=== PATIENT | male | born 1940 | race Caucasian/White ===

== ENCOUNTER 2018-06-10 15:34 | Inpatient (IN) | payer OTHER ==
[~2018-06-10] VITALS: Ht 160 cm; Wt 60.5 kg
[~2018-06-10 15:34] MED LIST: ATOR40TA69 PO; BUDE10.2 IH; LUTE1CAP5 PO; METF-444 PO; TIOT18CA3 IH; TRAM50TA4 PO
[2018-06-10 16:04] LABS: BASOPHILS % (AUTO) 0.3 % (0.0-5.0); EOSINOPHILS % (AUTO) 0.2 % (0.0-8.0); HEMATOCRIT 47.6 % (42-54); LYMPHOCYTES % (AUTO) 4.7 % (21.0-51.0); MEAN CORPUSCULAR HEMOGLOBIN 30.8 pg (27.0-33.0); MEAN CORPUSCULAR HGB CONC 32.6 g/dL (32.0-36.0); MEAN CORPUSCULAR VOLUME 94.7 fL (79-99); MONOCYTES % (AUTO) 7.1 % (3.0-13.0); NEUTROPHILS % (AUTO) 87.7 % (40.0-77.0); NUCLEATED RED BLOOD CELLS 0.1 % (0.0-0.19); PLATELET COUNT (AUTO) 249 K/uL (130-400); RED BLOOD CELL COUNT(AUTO) 5.03 MIL/uL (4.50-6.20); RED CELL DISTRIBUTION WIDTH 14.4 % (11.0-15.5); WHITE BLOOD COUNT (AUTO) 14.8 K/uL (4.8-10.8)
[2018-06-10 16:35] LABS: CREATININE 1.5 mg/dL (0.5-1.5); POTASSIUM 4.9 mmol/L (3.5-5.1)
[2018-06-10 16:39] LABS: ALBUMIN 3.3 g/dL (3.5-5.0); BILIRUBIN,TOTAL 0.4 mg/dL (0.2-1.0); TOTAL PROTEIN, SERUM 8.3 g/dL (6.0-8.3)
[2018-06-10] MEDS ORDERED: ACETAMINOPHEN 325 MG TAB ONE (22:49)
[2018-06-10] MEDS ORDERED: GLUCAGON 1MG KIT 1 MG ML IM PRN (23:00)
[2018-06-10] MEDS ORDERED: ONDANSETRON HCL 4 MG/2 ML VIAL IV PRN (23:00)
[2018-06-10] MEDS ORDERED: DEXTROSE 50%-WATER 50 ML DISP.SYRIN IV PRN (23:00)
[2018-06-10] MEDS ORDERED: ACETAMINOPHEN 325 MG TAB PO PRN (23:00)
[2018-06-10 23:26] LABS: HEMOGLOBIN A1C 7.8 % (4.0-6.0)
[2018-06-10] MEDS ORDERED: METRONIDAZOLE 500MG/100ML BAG 100 ML ONE (23:29)
[2018-06-11] MEDS ORDERED: IPRATROPIUM 0.5 MG/2.5 ML INH IH ONE ×4 (01:49→14:22)
[2018-06-11] MEDS: IPRATROPIUM 0.5 MG/2.5 ML INH IH PRN ×6 (01:50→21:25)
[2018-06-11 04:36] LABS: HEMATOCRIT 41.9 % (42-54); MEAN CORPUSCULAR HEMOGLOBIN 31.1 pg (27.0-33.0); MEAN CORPUSCULAR HGB CONC 32.9 g/dL (32.0-36.0); MEAN CORPUSCULAR VOLUME 94.4 fL (79-99); NUCLEATED RED BLOOD CELLS 0.1 % (0.0-0.19); PLATELET COUNT (AUTO) 187 K/uL (130-400); RED BLOOD CELL COUNT(AUTO) 4.44 MIL/uL (4.50-6.20); RED CELL DISTRIBUTION WIDTH 13.9 % (11.0-15.5); WHITE BLOOD COUNT (AUTO) 10.7 K/uL (4.8-10.8)
[2018-06-11 04:47] LABS: ALBUMIN 2.7 g/dL (3.5-5.0); BILIRUBIN,TOTAL 0.3 mg/dL (0.2-1.0); MAGNESIUM 1.6 mg/dL (1.80-2.40); POTASSIUM 4.2 mmol/L (3.5-5.1); TOTAL PROTEIN, SERUM 6.9 g/dL (6.0-8.3)
[2018-06-11 05:00] LABS: BAND NEUTROPHILS % (MANUAL) 1 % (0-2); LYMPHOCYTES % (MANUAL) 5 % (22-44); MAN.DIFF COMMENT-IMPRESSION MANUAL DIFFERENTIAL; MONOCYTES % (MANUAL) 8 % (2-9); SEGMENTED NEUTROPHILS % 86 % (40-70)
[2018-06-11] MEDS ORDERED: ACETAMINOPHEN 325 MG TAB ONE ×2 (07:08→12:08)
[2018-06-11 07:29] LABS: OCCULT BLOOD STOOL SINGLE ONLY POSITIVE (NEGATIVE)
[2018-06-11] MEDS ORDERED: FAMOTIDINE 20MG TAB 20 MG TAB ONE (07:53)
[2018-06-11] MEDS ORDERED: ENOXAPARIN SODIUM 30 MG/0.3 ML SQ ONE (07:53)
[2018-06-11] MEDS ORDERED: METRONIDAZOLE 500MG/100ML BAG 100 ML ONE (07:54)
[2018-06-11] MEDS: METRONIDAZOLE 500MG/100ML BAG 100 ML IV SCH ×2 (08:00→15:28)
[2018-06-11] MEDS: SODIUM CHLORIDE 0.9% 1000ML 1,000 ML IV SCH ×3 (08:58→23:00)
[2018-06-11] MEDS: ENOXAPARIN SODIUM 30 MG/0.3 ML SQ SCH (09:00)
[2018-06-11] MEDS: FAMOTIDINE 20MG TAB 20 MG TAB PO SCH (09:00)
[2018-06-11] MEDS ORDERED: IPRATROPIUM/ALBUTEROL SULFATE 3 ML SOLUTION IH ONE (09:41)
[2018-06-11] MEDS: INSULIN HUMULIN R 100 UNIT/ML 3ML SQ SCH ×3 (11:30→22:14)
[2018-06-11 14:42] LABS: APPEARANCE,URINE Clear (CLEAR); BILIRUBIN,URINE Negative (NEGATIVE); COLOR,URINE Yellow (YELLOW); GLUCOSE, URINE (UA) Negative (NEGATIVE); KETONES,URINE Trace mg/dL (NEGATIVE); LEUKOCYTE ESTERASE ,URINE Negative (NEGATIVE); NITRATE,URINE Negative (NEGATIVE); OCCULT BLOOD,URINE Negative (NEGATIVE); PROTEIN,URINE Negative (NEGATIVE); UROBILINOGEN,URINE 0.2 mg/dL (0.2-1.0)
[2018-06-11 16:00] VITALS: BP 128/64
[2018-06-11] MEDS: ACETAMINOPHEN 325 MG TAB PO PRN (22:05)
[2018-06-11 22:09] VITALS: BP 143/67
[2018-06-12] VITALS (7 sets, daily range): BP systolic 98–122; BP diastolic 48–67
[2018-06-12] MEDS: LEVOFLOXACIN 500 MG/D5W 100 ML 100 ML IV SCH ×2 (00:15→23:15)
[2018-06-12] MEDS: METRONIDAZOLE 500MG/100ML BAG 100 ML IV SCH ×4 (00:20→23:15)
[2018-06-12] MEDS: IPRATROPIUM 0.5 MG/2.5 ML INH IH PRN ×6 (01:46→21:55)
[2018-06-12 04:57] LABS: HEMATOCRIT 34.4 % (42-54); MEAN CORPUSCULAR HGB CONC 33.4 g/dL (32.0-36.0); MEAN CORPUSCULAR VOLUME 92.9 fL (79-99); PLATELET COUNT (AUTO) 186 K/uL (130-400); WHITE BLOOD COUNT (AUTO) 17.2 K/uL (4.8-10.8)
[2018-06-12 05:11] LABS: CREATININE 0.9 mg/dL (0.5-1.5); MAGNESIUM 1.5 mg/dL (1.80-2.40); PHOSPHORUS 2.4 mg/dL (2.5-4.9); POTASSIUM 3.4 mmol/L (3.5-5.1)
[2018-06-12] MEDS: SODIUM CHLORIDE 0.9% 1000ML 1,000 ML IV SCH ×3 (05:23→23:15)
[2018-06-12] MEDS: INSULIN HUMULIN R 100 UNIT/ML 3ML SQ SCH ×4 (06:44→20:33)
[2018-06-12] MEDS: FAMOTIDINE 20MG TAB 20 MG TAB PO SCH (09:54)
[2018-06-12] MEDS: ENOXAPARIN SODIUM 30 MG/0.3 ML SQ SCH (09:54)
[2018-06-12] MEDS: MAGNESIUM 2GM PREMIX 50ML 50 ML IV PRN (11:53)
--- NOTE | 2018-06-12 13:11 | NUR ---
DCP CM met with pt discussed dc plans. Pt is independent, lives at home with spouse. Has oxygen, and nebulizer. Feels safe to go back home, spouse able to assist with transportation and needs as necessary. DC plan to home once stable. CM to cont to follow up. Addendum: 06/12/18 at 1322 by AVIS ACEVEDO LVN CM Amended: Links added.
[2018-06-12] MEDS: ACETAMINOPHEN 325 MG TAB PO PRN (18:50)
[2018-06-12] MEDS ORDERED: COMPOUND PO MISCELLANEOUS 1 EACH MISC MISC PRN (19:45)
[2018-06-12] MEDS ORDERED: IOHEXOL 350 MG/ML 100ML INFUS..BTL IV ONE (20:06)
[2018-06-12] MEDS ORDERED: DIATR MEGLU/DIATRIZOATE SODIUM 30 ML BOTTLE ONE (20:06)
[2018-06-12] MEDS: VANCOMYCIN PO SCH ×2 (21:19)
[2018-06-13] VITALS: BP 122/70
[2018-06-13] MEDS: IPRATROPIUM 0.5 MG/2.5 ML INH IH PRN ×6 (01:14→21:29)
[2018-06-13 04:00] VITALS: BP 95/61
[2018-06-13 04:35] LABS: BASOPHILS % (AUTO) 0.4 % (0.0-5.0); EOSINOPHILS % (AUTO) 0.3 % (0.0-8.0); HEMATOCRIT 33.8 % (42-54); LYMPHOCYTES % (AUTO) 9.5 % (21.0-51.0); MEAN CORPUSCULAR HGB CONC 33.5 g/dL (32.0-36.0); MEAN CORPUSCULAR VOLUME 92.4 fL (79-99); MONOCYTES % (AUTO) 6.9 % (3.0-13.0); NEUTROPHILS % (AUTO) 82.9 % (40.0-77.0); PLATELET COUNT (AUTO) 153 K/uL (130-400); RED BLOOD CELL COUNT(AUTO) 3.66 MIL/uL (4.50-6.20); RED CELL DISTRIBUTION WIDTH 14.2 % (11.0-15.5); WHITE BLOOD COUNT (AUTO) 6.2 K/uL (4.8-10.8)
[2018-06-13 04:54] LABS: CREATININE 0.9 mg/dL (0.5-1.5); MAGNESIUM 1.8 mg/dL (1.80-2.40); PHOSPHORUS 1.8 mg/dL (2.5-4.9)
[2018-06-13 05:16] LABS: POTASSIUM 2.9 mmol/L (3.5-5.1)
[2018-06-13 05:24] LABS: CRP QUANTITATIVE 13.4 mg/L (0.00-9.0)
[2018-06-13 05:27] LABS: ERYTHROCYTE SEDIMENTATION RATE 50 MM/HR (0-20)
[2018-06-13 05:37] LABS: APPEARANCE,URINE Clear (CLEAR); BILIRUBIN,URINE Negative (NEGATIVE); COLOR,URINE Yellow (YELLOW); GLUCOSE, URINE (UA) Negative (NEGATIVE); KETONES,URINE Trace mg/dL (NEGATIVE); LEUKOCYTE ESTERASE ,URINE Negative (NEGATIVE); NITRATE,URINE Negative (NEGATIVE); OCCULT BLOOD,URINE Small (NEGATIVE); PH,URINE 5.5 (5.0-8.0); PROTEIN,URINE Negative (NEGATIVE); UROBILINOGEN,URINE 0.2 mg/dL (0.2-1.0)
[2018-06-13] MEDS: MAGNESIUM 2GM PREMIX 50ML 50 ML IV PRN (05:45)
[2018-06-13 05:59] LABS: BACTERIA,URINE None Seen /HPF (None Seen); SQUAMOUS EPITHELIAL CELL,UR Rare /HPF (0-2); WBC,URINE None Seen /HPF (0-1)
[2018-06-13] MEDS ORDERED: LIDOCAINE HCL-MPF 1% 2ML VIAL IVP PRN (06:30)
[2018-06-13] MEDS ORDERED: POTASSIUM CHLORIDE 10MEQ/100ML 100 ML IV PRN (06:30)
[2018-06-13] MEDS: INSULIN HUMULIN R 100 UNIT/ML 3ML SQ SCH ×4 (06:32→20:31)
[2018-06-13 07:00] VITALS: BP 102/56
[2018-06-13] MEDS: METRONIDAZOLE 500MG/100ML BAG 100 ML IV SCH ×3 (09:11→23:35)
[2018-06-13] MEDS: FAMOTIDINE 20MG TAB 20 MG TAB PO SCH (09:11)
[2018-06-13] MEDS: ENOXAPARIN SODIUM 30 MG/0.3 ML SQ SCH (09:11)
[2018-06-13] MEDS: VANCOMYCIN PO SCH ×8 (09:12→21:05)
[2018-06-13 11:00] VITALS: BP 101/58
[2018-06-13] MEDS: SODIUM CHLORIDE 0.9% 1000ML 1,000 ML IV SCH ×2 (11:17→21:06)
[2018-06-13] MEDS: POTASSIUM CHLORIDE 20 MEQ ERTAB PO PRN ×2 (15:36→17:59)
[2018-06-13 16:00] VITALS: BP 110/64
--- NOTE | 2018-06-13 16:26 | NUR ---
DCP/SNF: Discussed w pt recommendation for poss SNF @ DC. Per pt he feels safe to return home @ dc w the assistance of his spouse. Pt declines SNF @ this time.
[2018-06-13 19:00] VITALS: BP 114/71
[2018-06-13] MEDS: LEVOFLOXACIN 500 MG/D5W 100 ML 100 ML IV SCH (23:35)
[2018-06-14] VITALS: BP 118/67
[2018-06-14] MEDS: POTASSIUM CHLORIDE 10% ELIXIR 20 MEQ/15 ML UDCUP PO PRN ×2 (01:40→04:09)
[2018-06-14] MEDS: IPRATROPIUM 0.5 MG/2.5 ML INH IH PRN ×3 (02:05→18:59)
[2018-06-14 04:00] VITALS: BP 103/58
[2018-06-14 05:46] LABS: BASOPHILS % (AUTO) 0.4 % (0.0-5.0); EOSINOPHILS % (AUTO) 1.1 % (0.0-8.0); HEMATOCRIT 33.1 % (42-54); LYMPHOCYTES % (AUTO) 17.2 % (21.0-51.0); MEAN CORPUSCULAR HEMOGLOBIN 30.7 pg (27.0-33.0); MEAN CORPUSCULAR HGB CONC 33.3 g/dL (32.0-36.0); MEAN CORPUSCULAR VOLUME 92.1 fL (79-99); NEUTROPHILS % (AUTO) 69.3 % (40.0-77.0); PLATELET COUNT (AUTO) 153 K/uL (130-400); RED BLOOD CELL COUNT(AUTO) 3.59 MIL/uL (4.50-6.20); RED CELL DISTRIBUTION WIDTH 14.3 % (11.0-15.5); WHITE BLOOD COUNT (AUTO) 5.3 K/uL (4.8-10.8)
[2018-06-14] MEDS: INSULIN HUMULIN R 100 UNIT/ML 3ML SQ SCH ×4 (05:46→21:00)
[2018-06-14 06:01] LABS: CREATININE 0.8 mg/dL (0.5-1.5); POTASSIUM 3.7 mmol/L (3.5-5.1)
--- NOTE | 2018-06-14 06:52 | NUR ---
DC Colin Colin was removed per MD's order. Tolerated well and is due to void by 1450.
[2018-06-14 07:00] VITALS: BP 120/64
[2018-06-14] MEDS: FAMOTIDINE 20MG TAB 20 MG TAB PO SCH (09:28)
[2018-06-14] MEDS: METRONIDAZOLE 500MG/100ML BAG 100 ML IV SCH ×3 (09:28→23:57)
[2018-06-14] MEDS: ENOXAPARIN SODIUM 30 MG/0.3 ML SQ SCH (09:28)
[2018-06-14] MEDS: VANCOMYCIN PO SCH ×8 (09:29→21:30)
[2018-06-14] MEDS: SODIUM CHLORIDE 0.9% 1000ML 1,000 ML IV SCH ×2 (09:30→21:27)
[2018-06-14 11:00] VITALS: BP 108/61
--- NOTE | 2018-06-14 14:49 | NUR ---
BLADDER SCAN PATIENT UNABLE TO URINATE AT THIS TIME. BLADDER SCAN INDICATED [id number]. MARCELO TOLLIVER NOTIFIED OF SCAN RESULTS.
[2018-06-14 16:00] VITALS: BP 116/66
[2018-06-14 19:00] VITALS: BP 115/60
[2018-06-15] VITALS: BP 146/76
[2018-06-15 04:00] VITALS: BP 126/66
[2018-06-15] MEDS: INSULIN HUMULIN R 100 UNIT/ML 3ML SQ SCH (06:03)
[2018-06-15] MEDS ORDERED: METR-172 PO (06:36)
[2018-06-15] MEDS: IPRATROPIUM 0.5 MG/2.5 ML INH IH PRN (07:37)
[2018-06-15] MEDS: METRONIDAZOLE 500MG/100ML BAG 100 ML IV SCH (07:47)
[2018-06-15 08:00] VITALS: BP 121/63
[2018-06-15] MEDS: ENOXAPARIN SODIUM 30 MG/0.3 ML SQ SCH (09:00)
[2018-06-15] MEDS: VANCOMYCIN PO SCH ×2 (09:28)
[2018-06-15] MEDS: FAMOTIDINE 20MG TAB 20 MG TAB PO SCH (09:29)
--- NOTE | 2018-06-15 09:40 | NUR ---
INSTRUCTIONS DISCHARGE INSTRUCTIONS GIVEN TO PATIENT AND SPOUSE USING TEACH BACK. F/U APPOINTMENT MADE WITH PRIMARY MD WITH INSTRUCTIONS TO MAKE A REFERRAL WITH UROLOGIST FOR URINE RETENTION REQUIRING A HERRMANN CATHETER INSERTION. NEW PRESCRIPTION PLACED IN PACKET ALONG WITH ALL PRINTED INFORMATION AND MD INSTRUCTIONS. IV REMOVED WITH TIP INTACT. DIRECT PRESSURE APPLIED UNTIL BLEEDING CONTROLLED THEN SITE WAS COVERED WITH GAUZE AND SECURED WITH A BAND-AID.
--- NOTE | 2018-06-15 10:10 | NUR ---
TRANSPORT PATIENT TRANSPORTED TO PRIVATE VEHICLE VIA WHEELCHAIR BY PASCUAL ALEXANDER. ALL PERSONAL BELONGINGS WITH SPOUSE. NO QUESTIONS CONCERNS VOICED.
== END 2018-06-15 10:10 | disposition home or self-care (01) | DRG 871 ==
LOC: EDH 15:34 → EDHIP 21:51 → 3AH 06-11 15:12
PROVIDERS: ADMIT Internal Medicine; ATTEND Internal Medicine
DX: A41.9 Sepsis, unspecified organism (principal); N17.0 Acute kidney failure with tubular necrosis; K52.9 Noninfective gastroenteritis and colitis, unspecified; R65.20 Severe sepsis without septic shock; E86.1 Hypovolemia; E86.0 Dehydration; E11.65 Type 2 diabetes mellitus with hyperglycemia; E87.6 Hypokalemia; G89.4 Chronic pain syndrome; J43.9 Emphysema, unspecified; J84.10 Pulmonary fibrosis, unspecified; I10 Essential (primary) hypertension; H35.30 Unspecified macular degeneration; R63.4 Abnormal weight loss; R33.9 Retention of urine, unspecified; Z68.23 Body mass index [BMI] 23.0-23.9, adult; Z88.8 Allergy status to other drugs, medicaments and biological substances; Z83.3 Family history of diabetes mellitus; Z83.6 Family history of other diseases of the respiratory system; Z82.49 Family history of ischemic heart disease and other diseases of the circulatory system; Z80.9 Family history of malignant neoplasm, unspecified; Z82.41 Family history of sudden cardiac death
CPT/HCPCS: 36415; 71046; 71260; 74177; 80048; 80053; 81001; 81003; 82270; 82948; 83036; 83630; 83735; 84100; 84132; 85025; 85027; 85651; 86140; 87040; 87046; 87088; 87324; 93005; 94640; 94664; A4218; A4344; G0378; J1650; J1815; J1956; J3370; J3475; J3490; J7030; Q9963; Q9967

== ENCOUNTER 2018-09-28 10:37 | Inpatient (IN) | payer OTHER | END 2018-10-02 18:45 | disposition home or self-care (01) | LOC: EDH 10:37 → EDHIP 18:25 → 3DH 21:05 | DX: J18.1 Lobar pneumonia, unspecified organism (principal); J96.21 Acute and chronic respiratory failure with hypoxia; J44.1 Chronic obstructive pulmonary disease with (acute) exacerbation; J44.0 Chronic obstructive pulmonary disease with (acute) lower respiratory infection; N40.0 Benign prostatic hyperplasia without lower urinary tract symptoms; Z99.81 Dependence on supplemental oxygen ==

== ENCOUNTER 2019-01-29 15:35 | Emergency (ER) | payer OTHER ==
[~2019-01-29 15:35] MED LIST changes: +FURO20TA4 PO; +PANT40TA25 PO; +SITA50TA PO; +TAMS-1 PO; -TRAM50TA4 PO; +VANC500F IV
[2019-01-29 16:11] LABS: BASOPHILS % (AUTO) 0.3 % (0.0-5.0); EOSINOPHILS % (AUTO) 0.3 % (0.0-8.0); HEMATOCRIT 43.6 % (42-54); LYMPHOCYTES % (AUTO) 8.5 % (21.0-51.0); MEAN CORPUSCULAR HEMOGLOBIN 29.7 pg (27.0-33.0); MEAN CORPUSCULAR VOLUME 89.9 fL (79-99); MONOCYTES % (AUTO) 6.4 % (3.0-13.0); NEUTROPHILS % (AUTO) 84.5 % (40.0-77.0); PLATELET COUNT (AUTO) 186 K/uL (130-400); RED BLOOD CELL COUNT(AUTO) 4.85 MIL/uL (4.50-6.20); RED CELL DISTRIBUTION WIDTH 14.4 % (11.0-15.5); WHITE BLOOD COUNT (AUTO) 12.2 K/uL (4.8-10.8)
[2019-01-29 16:16] LABS: CREATININE 0.9 mg/dL (0.5-1.5); POTASSIUM 4.2 mmol/L (3.5-5.1)
[2019-01-29 16:18] LABS: INR 1.04 (0.85-1.15); PROTHROMBIN TIME 10.9 SEC (9.6-11.6)
[2019-01-29 16:24] LABS: ALBUMIN 3.6 g/dL (3.5-5.0); BILIRUBIN,TOTAL 0.6 mg/dL (0.2-1.0); TOTAL PROTEIN, SERUM 8.6 g/dL (6.0-8.3)
[2019-01-29] MEDS ORDERED: SODIUM CHLORIDE 0.9% 1000ML 2,000 ML IV ONE (16:40)
[2019-01-29 16:52] LABS: ABG BASE EXCESS 5.9 mmol/L (-2.0-3.0); ABG HCO3 34.3 mmol/L (21.0-28.0); ABG OXYGEN SATURATION 89.4 % (95.0-99.0); ABG PCO2 67 mmHg (35-48)
[2019-01-29] MEDS ORDERED: IPRATROPIUM/ALBUTEROL SULFATE 3 ML SOLUTION IH ONE (20:47)
== END 2019-01-29 21:07 | disposition home or self-care (01) ==
LOC: EDH 15:35
DX: J44.9 Chronic obstructive pulmonary disease, unspecified (principal); E11.9 Type 2 diabetes mellitus without complications; Z88.8 Allergy status to other drugs, medicaments and biological substances
CPT/HCPCS: 36415; 36600; 71045; 80053; 82803; 85025; 85610; 85730; 94640; 99285; J7030